=== PATIENT | female | born 1975 | race American Indian/Alaskan Native ===

== ENCOUNTER 2016-09-27 18:10 | Inpatient (IN) | payer MEDICAID ==
[2016-09-27 18:10] VITALS: BMI 32.4
--- NOTE | 2016-09-27 20:22 | C.PDOC ---
History Of Present Illness 41 y/o female transferred from [place] ED for eclampsia. Elevated blood pressure and lower extremity edema noted at 8 day follow up visit with complaints of headache and hypertension, patient sent to [place] ED; patient then transferred to [facility] by Dr Gannon. Denies chest pain, SOB, vomiting or any other complaints. Chief Complaint (Nursing): High Blood Pressure History Per: Patient History/Exam Limitations: no limitations Onset/Duration Of Symptoms: Hrs, Days Current Symptoms Are (Timing): Still Present Associated Symptoms: Headache Severity: Moderate Recent travel outside of the [place]: No Past Medical History Reviewed: Historical Data, Nursing Documentation, Vital Signs Vital Signs: Last Vital Signs Temp 98.2 F 09/27/16 20:45 Pulse 51 L 09/27/16 20:45 Resp 20 09/27/16 20:45 BP 161/68 H 09/27/16 20:45 Pulse Ox 100 09/27/16 23:21 - Medical History PMH: Asthma - [facility] Procedures ARTIF RUPT MEMBRANES NEC (10/14/98) EPISIOTOMY (10/14/98) NEBULIZER THERAPY (01/08/14) REMOV INTRALUM VAG FB (02/25/14) Family History: States: Unknown Family Hx - Social History Hx Tobacco Use: No Hx Alcohol Use: Yes Hx Substance Use: No - Immunization History Hx Tetanus Toxoid Vaccination: No Hx Influenza Vaccination: No Hx Pneumococcal Vaccination: No Review Of Systems Constitutional: Negative for: Fever Cardiovascular: Negative for: Chest Pain Respiratory: Negative for: Shortness of Breath Gastrointestinal: Negative for: Vomiting Musculoskeletal: Positive for: Other (bilateral lower extremity edema) Neurological: Positive for: Headache Physical Exam - Physical Exam Appears: Non-toxic, No Acute Distress, Other (black female) Skin: Warm, Dry, No Rash Head: Atraumatic, Normacephalic Neck: Normal, Normal ROM, Supple Chest: Symmetrical Cardiovascular: Rhythm Regular, No Murmur Respiratory: Normal Breath Sounds, No Rales, No Rhonchi, No Wheezing Gastrointestinal/Abdominal: Soft, No Tenderness, Other (Pfannenstiel incisions to abdomen) Extremity: Normal ROM, No Calf Tenderness, Other (obese lower extremities with mild edema) Pulses: Left Dorsalis Pedis: Normal, Right Dorsalis Pedis: Normal Neurological/Psych: Oriented x3, Normal Speech ED Course And Treatment - Laboratory Results Lab Interpretation: Normal (ua neg for protein, + THC) O2 Sat by Pulse Oximetry: 100 (room air) Pulse Ox Interpretation: Normal Reevaluation Time: 19:50 Reassessment Condition: Improved - Physician Consult Information Outcome Of Conversation: 1924: d/w Dr. Torre- OB [facility] Tender- ok to OB floor, will eval in ED Medical Decision Making Medical Decision Making: ? post- ecclampsia, neg urine protein Disposition Doctor Will See Patient In The: Hospital Counseled Patient/Family Regarding: Studies Performed, Diagnosis - Disposition Disposition: HOSPITALIZED Disposition Time: 19:50 Condition: GOOD - Clinical Impression Clinical Impression: hypertension - Scribe Statement The provider has reviewed the documentation as recorded by the Gia Yusuf Provider Attestation: All medical record entries made by the Gia were at my direction and personally dictated by me. I have reviewed the chart and agree that the record accurately reflects my personal performance of the history, physical exam, medical decision making, and the department course for this patient. I have also personally directed, reviewed, and agree with the discharge instructions and disposition.
[2016-09-27] MEDS ORDERED: Labetalol 25mg/5ml Syringe IVP STA ×2 (20:25→20:27)
[2016-09-27] MEDS ORDERED: Labetalol 25mg/5ml Syringe ONE (20:35)
--- NOTE | 2016-09-27 20:38 | CP.PCM.HP ---
History of Present Illness - History of Present Illness History of Present Illness: 41 yr s/p c/s 09/19/16 in [facility] send by pmd Dr Obregon because bp is high, c/o dizziness and swelling in leg. pt c/o hedache in frontl are and no blurry visiion. no h/o htn or preeclampsia before. pt was send from [facility] andnot seen by obgyn.pt was given mgso4 and labetolol in er. obhx 2 x , 1 x c/s pmh den med motrin, percocet all nkda psh c/s, nasal septum smoking +++ abd incision clean and dry, abdomen soft ext mild eedema,no calf ten reflex 1+ bp 182/81 blood work normal Present on Admission - Present on Admission Any Indicators Present on Admission: No History of DVT/PE: No History of Uncontrolled Diabetes: No Urinary Catheter: No Decubitus Ulcer Present: No Review of Systems - Neurological Neurological: As Per HPI Past Patient History - Infectious Disease Hx of Infectious Diseases: None - Tetanus Immunizations Tetanus Immunization: Unknown - Past Social History Smoking Status: Light Smoker < 10 Cigarettes Daily - CARDIAC Hx Cardiac Disorders: No - PULMONARY Hx Asthma: Yes - NEUROLOGICAL Hx Neurological Disorder: No - HEENT Hx HEENT Problems: No - RENAL Hx Chronic Kidney Disease: No - ENDOCRINE/METABOLIC Hx Endocrine Disorders: No - HEMATOLOGICAL/ONCOLOGICAL Hx Blood Disorders: No - INTEGUMENTARY Hx Dermatological Problems: No - MUSCULOSKELETAL/RHEUMATOLOGICAL Hx Musculoskeletal Disorders: No - GASTROINTESTINAL Hx Gastrointestinal Disorders: No - GENITOURINARY/GYNECOLOGICAL Hx Genitourinary Disorders: No - PSYCHIATRIC Hx Depression: No Hx Substance Use: No - SURGICAL HISTORY Other/Comment: nasal polyps - ANESTHESIA Hx Anesthesia: Yes Hx Anesthesia Reactions: No Hx Malignant Hyperthermia: No Meds Allergies/Adverse Reactions: Allergies Allergy/AdvReac Type Severity Reaction Status Date / Time No Known Allergies Allergy Verified 09/27/16 15:45 Physical Exam - Constitutional Appears: Well - Respiratory Exam Respiratory Exam: NORMAL BREATHING PATTERN - Cardiovascular Exam Cardiovascular Exam: REGULAR RHYTHM - Exam External exam: NORMAL EXTERNAL EXAM - Extremities Exam Extremities exam: Positive for: pedal edema (1=) Results - Vital Signs Recent Vital Signs: Last Vital Signs Temp 98 F 09/27/16 18:27 Pulse 56 L 09/27/16 20:20 Resp 18 09/27/16 18:27 BP 185/82 H 09/27/16 20:20 Pulse Ox 100 09/27/16 20:22 Assessment & Plan - Assessment and Plan (Free Text) Assessment: 41 yr with post preeclampsia Plan: Admit to quality improvement manager Mgso4 2 gm ivpb for 24 hrs. bp monitoring input/out put labs in am s mg level q6 hr cont close observation - Date & Time Date: 09/27/16 Time: 20:45
[2016-09-27] MEDS ORDERED: Magnesium Sulfate 20 gm 20 MG/0.5 ML BAG IV SCH ×2 (20:45→21:00)
[2016-09-27] MEDS ORDERED: Magnesium Sulfate 20 gm 500 ML IV SCH (21:15)
[2016-09-27] MEDS ORDERED: Magnesium Sulfate 20 gm 20,000 MG/500 ML BAG IV ONE ×2 (21:42→22:00)
[2016-09-27 22:26] LABS: RBC URINE < 1 /hpf (0-3); TRANSITIONAL EPITHIAL < 1 /hpf (0-3); URINE BACTERIA RARE (<OCC); URINE BILIRUBIN NEGATIVE (NEGATIVE); URINE BLOOD 1+ (NEGATIVE); URINE COLOR Straw (YELLOW); URINE GLUCOSE (UA) NORMAL (Normal); URINE KETONE NEGATIVE (NEGATIVE); URINE LEUKOCYTE ESTERASE NEG Leu/uL (Negative); URINE PROTEIN NEGATIVE (NEGATIVE); URINE UROBILINOGEN NORMAL mg/dL (0.2-1.0); WBC URINE 1 /hpf (0-5)
[2016-09-28 04:06] LABS: INR 0.9
[2016-09-28] MEDS ORDERED: Magnesium Sulfate 20 gm 20,000 MG/500 ML BAG IV ONE (08:43)
[2016-09-28 11:55] LABS: BASO # 0.1 K/uL (0.0-0.2); BASO % 0.9 % (0.0-2.0); EOS # 0.3 K/uL (0.0-0.7); EOS % 4.1 % (0.0-4.0); HEMATOCRIT 31.7 % (34.0-47.0); LYMPH # 2.3 K/uL (1.0-4.3); LYMPH % 27.2 % (20.0-40.0); MEAN CORPUSCULAR HEMOGLOBIN 31.2 pg (27.0-31.0); MEAN CORPUSCULAR HGB CONC 33.2 g/dL (33.0-37.0); MONO # 0.6 K/uL (0.0-0.8); NRBC % 0.1 % (0.0-2.0); RED CELL DISTRIBUTION WIDTH 13.9 % (11.5-14.5); WHITE BLOOD COUNT 8.3 K/uL (4.8-10.8)
--- NOTE | 2016-09-28 11:55 | CP.PCM.CON ---
<Regina Kapoor - Last Filed: 09/28/16 17:30> History of Present Illness - History of Present Illness History of Present Illness: MEDICAL CONSULT NOTE CC: elevated blood pressure to lower extremity swelling HPI: 41 yo patient with PMHx significant for asthma presents s/p September 19, 2016. Patient states that she delivered at [facility] in [place], [place]. Patient states that the was performed due to failure of progression. It was also noted at the time that the nuchal cord was wrapped around the baby's neck. She states that there were no known complications during the procedure nor post-op. Patient states that she has had two prior vaginal deliveries in the past without complications. She states that she went to her OBGYN's office yesterday for a routine 1-wk checkup and was told that her pressure was elevated which was new for her. She was also noted to have lower extremity bilateral edema as well. Patient was asked to go to the emergency room and thus she went to [facility] where she was evaluated and recommended to be transferred to [facility]. She states that she has had the lower extremity swelling over the course of the . She reported feeling lightheaded on one occasion last week (Tue) after being discharged from the hospital which resolved. Patient also reports headaches which began last night, resolved and then continued this morning. Patient admits to cough and cold symptoms of two weeks duration and increased urinary frequency. She denies subjective fevers or chills, chest pain, palpitations, abdominal pain, nausea, vomiting, visual changes, vaginal discharge, paresthesias, diarrhea, constipation, back pain, leg pain, or changes in appetite. PMHX: Asthma PSHX: September 19, 2016 Meds: Post delivery: iron, ibuprofen 600 mg and percocet 5-325 Q6 PRN, and antibiotic that begins with the letter c Fam Hx: Mom had breast cancer requiring mastectomy, HTN, renal disease. Mom of pulmonary embolism in 2002 at age 59; Dad has DM and had a stroke last year at the age of 74 Social Hx: 4 cigarettes a day for approx 10 years; drinks alcohol only during family gatherings; admits to daily marijuana use; last used a few days ago; Allergies- denies Review of Systems - Constitutional Constitutional: Headache. absent: Fever, Increased Appetite - EENT Eyes: absent: Blurred Vision, Change in Vision, Pain Ears: absent: Decreased Hearing, Ear Discharge Nose/Mouth/Throat: absent: Nasal Congestion - Cardiovascular Cardiovascular: absent: Chest Pain, Chest Pain at Rest - Respiratory Respiratory: Cough - Gastrointestinal Gastrointestinal: absent: Abdominal Pain, Nausea, Vomiting - Genitourinary Genitourinary: Urinary Frequency. absent: Change in Urinary Stream, Dysuria, Flank Pain, Hematuria, Pyuria, Urinary Urgency - Musculoskeletal Musculoskeletal: absent: Back Pain, Muscle Weakness, Neck Pain - Integumentary Integumentary: Swelling (1+ LE b/l). absent: Dry Skin, Skin Pain - Neurological Neurological: Headaches. absent: Abnormal Hearing, Abnormal Movements, Confusion, Convulsions, Dizziness, Frequent Falls, Syncope, Tingling - Psychiatric Psychiatric: absent: Anxiety, Panic Attacks - Endocrine Endocrine: absent: Polydipsia, Polyphagia - Hematologic/Lymphatic Hematologic: absent: Easy Bleeding, Easy Bruising Past Patient History - Infectious Disease Hx of Infectious Diseases: None - Tetanus Immunizations Tetanus Immunization: Unknown - Past Social History Smoking Status: Light Smoker < 10 Cigarettes Daily Alcohol: Occasional Drugs: Cannabis - CARDIAC Hx Cardiac Disorders: No - PULMONARY Hx Asthma: Yes - NEUROLOGICAL Hx Neurological Disorder: No - HEENT Hx HEENT Problems: No - RENAL Hx Chronic Kidney Disease: No - ENDOCRINE/METABOLIC Hx Endocrine Disorders: No - HEMATOLOGICAL/ONCOLOGICAL Hx Blood Disorders: No - INTEGUMENTARY Hx Dermatological Problems: No - MUSCULOSKELETAL/RHEUMATOLOGICAL Hx Musculoskeletal Disorders: No - GASTROINTESTINAL Hx Gastrointestinal Disorders: No - GENITOURINARY/GYNECOLOGICAL Hx Genitourinary Disorders: No - PSYCHIATRIC Hx Substance Use: No - SURGICAL HISTORY Other/Comment: nasal polyps - ANESTHESIA Hx Anesthesia: Yes Hx Anesthesia Reactions: No Hx Malignant Hyperthermia: No Meds Allergies/Adverse Reactions: Allergies Allergy/AdvReac Type Severity Reaction Status Date / Time No Known Allergies Allergy Verified 09/27/16 15:45 - Medications Medications: Current Medications Magnesium Sulfate (Magnesium Sulfate) 20,000 mg in 500 mls @ 25 mls/hr IV ONCE ONE Stop: 09/28/16 17:59 Last Admin: 09/27/16 21:45 Dose: 25 mls/hr Ibuprofen (Motrin Tab) 600 mg PO Q6 PRN Last Admin: 09/27/16 23:20 Dose: 600 mg Physical Exam - Constitutional Appears: No Acute Distress - Head Exam Head Exam: ATRAUMATIC, NORMAL INSPECTION, NORMOCEPHALIC - Eye Exam Eye Exam: EOMI, Normal appearance, PERRL Pupil Exam: NORMAL ACCOMODATION - ENT Exam ENT Exam: Mucous Membranes Moist, Normal Exam - Neck Exam Neck exam: Positive for: Normal Inspection - Respiratory Exam Respiratory Exam: NORMAL BREATHING PATTERN. absent: Chest Wall Tenderness, Decreased Breath Sounds, Wheezes - Cardiovascular Exam Cardiovascular Exam: Bradycardia, +S1, +S2 - GI/Abdominal Exam GI & Abdominal Exam: Distended (appropriately distended post delivery) , Normal Bowel Sounds, Soft. absent: Guarding, Hernia Additional comments: incisional site c/d/i with steri strips present - Extremities Exam Extremities exam: Positive for: full ROM, pedal edema (b/l 1+). Negative for: tenderness - Back Exam Back exam: FULL ROM - Neurological Exam Neurological exam: Alert, Oriented x3 - Expanded Neurological Exam Expanded Patient oriented to: person, place, time Cranial nerves: EOM's Intact: Normal, Facial Sensation: Normal Cerebellar Function: Finger to Nose: Normal, Heel to Brush: Normal Upper motor neuron: Babinski Sign: Normal Sensory exam: Lower Extremity Light Touch: Normal, Lower Extremity Temperature: Normal, Upper Extremity Light Touch: Normal, Upper Extremity Temperature: Normal Neuro motor strength exam: Left Upper Extremity: 5, Right Upper Extremity: 5, Left Lower Extremity: 5, Right Lower Extremity: 5 DTR: Achilles Tendon Left: 2+, Achilles Tendon Right: 2+, Brachioradialis Left: 2+, Brachioradialis Right: 2+, Patellar Left: 2+, Patellar Right: 2+ - Psychiatric Exam Psychiatric exam: Normal Affect, Normal Mood - Skin Skin Exam: Intact, Normal Color, Warm Results - Vital Signs Recent Vital Signs: Last Vital Signs Temp 98.2 F 09/27/16 20:45 Pulse 51 L 09/27/16 20:45 Resp 20 09/27/16 20:45 BP 161/68 H 09/27/16 20:45 Pulse Ox 100 09/28/16 00:27 - Labs Result Diagrams: 09/28/16 11:41 09/28/16 11:41 Labs: Laboratory Results - last 24 hr 09/27/16 09/27/16 09/28/16 22:17 22:17 03:53 PT INR APTT Magnesium 5.3 H* Urine Color Straw Urine Clarity Clear Urine pH 7.0 Ur Specific [place] 1.005 Urine Protein Negative Urine Glucose (UA) Normal Urine Ketones Negative Urine Blood 1+ H Urine Nitrate Negative Urine Bilirubin Negative Urine Urobilinogen Normal Ur Leukocyte Esterase Neg Urine WBC (Auto) 1 Urine RBC (Auto) < 1 Ur Squamous Epith Cells 1 Ur Transition Epith Cell < 1 Urine Bacteria Rare Urine Opiates Screen Negative Urine Methadone Screen Negative Ur Barbiturates Screen Negative Ur Phencyclidine Scrn Negative Ur Amphetamines Screen Negative U Benzodiazepines Scrn Negative U Oth Cocaine Metabols Negative U Cannabinoids Screen Positive 09/28/16 03:53 PT 10.4 INR 0.9 APTT 23 Magnesium Urine Color Urine Clarity Urine pH Ur Specific [place] Urine Protein Urine Glucose (UA) Urine Ketones Urine Blood Urine Nitrate Urine Bilirubin Urine Urobilinogen Ur Leukocyte Esterase Urine WBC (Auto) Urine RBC (Auto) Ur Squamous Epith Cells Ur Transition Epith Cell Urine Bacteria Urine Opiates Screen Urine Methadone Screen Ur Barbiturates Screen Ur Phencyclidine Scrn Ur Amphetamines Screen U Benzodiazepines Scrn U Oth Cocaine Metabols U Cannabinoids Screen Assessment & Plan - Assessment and Plan (Free Text) Assessment: Suspected Pospartum Preeclampsia Patient admitted to OBGYN service On Mag Sulfate for 24 hr- Monitor Mag level. First level 5.3, second check 6.0 Monitor ins and outs LFTs WNL, platelets WNL EKG Initial NSR with 1st AV block with HR in 50s - [facility] on 09/27 2nd EKG NSR 1st AV block with HR in 50s Will recheck EKG and vitals after Mag sulfate is stopped. Patient initially given Hydralazine. BP initially 174/81-> now 147/69 at 13:16 on 09/28 Monitor BP and HR Ibuprofen for ADAMS Oxygen therapy if necessary F/U with OBGYN team Cont to monitor vitals Prophylactic Measure Ambulation as tolerated Continued Monitoring of vitals <Analisa Quick V - Last Filed: 09/29/16 09:24> Meds - Medications Medications: Current Medications Ibuprofen (Motrin Tab) 600 mg PO Q6 PRN Last Admin: 09/28/16 22:14 Dose: 600 mg Nifedipine (Procardia) 10 mg PO BID ZIGGY Last Admin: 09/28/16 20:52 Dose: 10 mg Results - Vital Signs Recent Vital Signs: Last Vital Signs Temp 99.2 F 09/29/16 08:00 Pulse 65 09/29/16 08:00 Resp 18 09/29/16 08:00 BP 140/88 09/29/16 08:00 Pulse Ox 100 09/29/16 08:00 - Labs Result Diagrams: 09/29/16 07:12 09/29/16 07:12 Labs: Laboratory Results - last 24 hr 09/28/16 09/28/16 09/29/16 11:41 11:41 07:12 WBC 8.3 8.3 RBC 3.37 L 3.72 L Hgb 10.5 L 11.4 Hct 31.7 L 34.9 MCV 94.0 94.0 MCH 31.2 H 30.6 MCHC 33.2 32.5 L RDW 13.9 13.9 Plt Count 313 344 MPV 8.0 8.1 Neut % (Auto) 60.8 62.7 Lymph % (Auto) 27.2 25.7 [place] % (Auto) 7.0 6.8 Eos % (Auto) 4.1 H 4.0 Baso % (Auto) 0.9 0.8 Neut # 5.0 5.2 Lymph # 2.3 2.1 [place] # 0.6 0.6 Eos # 0.3 0.3 Baso # 0.1 0.1 Sodium 136 Potassium 3.9 Chloride 101 Carbon Dioxide 30 Anion Gap 9 L BUN 5 L Creatinine 0.8 Est GFR ( Amer) > 60 Est GFR (Non-Af Amer) > 60 Random Glucose 85 Uric Acid 6.7 Calcium 6.8 L Phosphorus Magnesium 6.0 H* Total Bilirubin 0.8 AST 25 ALT 20 Alkaline Phosphatase 83 Lactate Dehydrogenase 610 Total Protein 6.5 Albumin 3.2 L Globulin 3.3 Albumin/Globulin Ratio 1.0 09/29/16 07:12 WBC RBC Hgb Hct MCV MCH MCHC RDW Plt Count MPV Neut % (Auto) Lymph % (Auto) [place] % (Auto) Eos % (Auto) Baso % (Auto) Neut # Lymph # [place] # Eos # Baso # Sodium 136 Potassium 4.1 Chloride 101 Carbon Dioxide 28 Anion Gap 10 BUN 6 L Creatinine 0.9 Est GFR ( Amer) > 60 Est GFR (Non-Af Amer) > 60 Random Glucose 77 Uric Acid Calcium 6.3 L Phosphorus 3.9 Magnesium 4.1 H Total Bilirubin 0.7 AST 21 ALT 20 Alkaline Phosphatase 89 Lactate Dehydrogenase Total Protein 6.6 Albumin 3.2 L Globulin 3.4 Albumin/Globulin Ratio 0.9 L Attending/Attestation - Attestation I have personally seen and examined this patient.: Yes I have fully participated in the care of the patient.: Yes I have reviewed all pertinent clinical information: Yes Notes (Text): This is late computer entry for 09/28/16. Patient seen, examined, and case discussed with day-time resident. Medicine service consulted for bradycardia. Management post- pre- elclamsia per OBGYN. Patient seen, examined at bedside. Patient denies lightheadedness, denies dizziness, denies nausea, denies vomitting. Patient denies prior cardiac history and reports her blood pressure is normally normal. Patient is currently being treated for pre-eclampsia after worsening b/l leg swelling post and associated rise in systolic blood pressure at her OB-HEALTH TYPE TECHNICIAN office at her follow-up appointment. Patient is currently on IV magnesium for her pre- elcampsia. Reviewed prior EKG from [place] on her admission which report sinus bradycardia w 1 AV block HR: 59; NM mildly above 200ms. Ordered for repeat EKG today. Discussed with OB-HEALTH TYPE TECHNICIAN, Dr Pollack, suspecting bradycardia secondary to IV Magnesium which is showed at levels of Mg2+4-5. Will assess patient when IV Magnesium is stopped per OB-HEALTH TYPE TECHNICIAN. Assessment/Plan 1) Bradycardia * suspected secondary to IV Magnesium (Level: 4-5) * asymptomatic of bradycardia * Will order repeat EKG * Continue to monitor 3) Post- pre-eclampsia * Management per OBGYN Thank for you the consult.
[2016-09-28 12:25] LABS: CHLORIDE 101 mmol/L (98-107); POTASSIUM 3.9 mmol/L (3.6-5.2); SODIUM 136 mmol/L (132-148)
[2016-09-28 12:27] LABS: ALKALINE PHOSPHATASE 83 U/L (38-126); AST/SGOT 25 U/L (14-36); BILIRUBIN,TOTAL 0.8 mg/dL (0.2-1.3); CARBON DIOXIDE 30 mmol/L (22-30); GFR AFRICAN-AMERICAN > 60; TOTAL PROTEIN 6.5 g/dL (6.3-8.3)
[2016-09-28 12:28] LABS: ALT/SGPT 20 U/L (9-52); BLOOD UREA NITROGEN 5 mg/dL (7-17); CALCIUM 6.8 mg/dl (8.6-10.4); GLUCOSE,RANDOM 85 mg/dL (65-105); URIC ACID 6.7 mg/dL (2.2-7.5)
[2016-09-29 07:28] LABS: BASO # 0.1 K/uL (0.0-0.2); BASO % 0.8 % (0.0-2.0); EOS # 0.3 K/uL (0.0-0.7); HEMATOCRIT 34.9 % (34.0-47.0); LYMPH # 2.1 K/uL (1.0-4.3); LYMPH % 25.7 % (20.0-40.0); MEAN CORPUSCULAR HEMOGLOBIN 30.6 pg (27.0-31.0); MEAN CORPUSCULAR HGB CONC 32.5 g/dL (33.0-37.0); MEAN PLATELET VOLUME 8.1 fL (7.2-11.7); MONO # 0.6 K/uL (0.0-0.8); MONO % 6.8 % (0.0-10.0); RED CELL DISTRIBUTION WIDTH 13.9 % (11.5-14.5); WHITE BLOOD COUNT 8.3 K/uL (4.8-10.8)
[2016-09-29 07:44] LABS: CHLORIDE 101 mmol/L (98-107); POTASSIUM 4.1 mmol/L (3.6-5.2); SODIUM 136 mmol/L (132-148)
[2016-09-29 07:46] LABS: BILIRUBIN,TOTAL 0.7 mg/dL (0.2-1.3); CARBON DIOXIDE 28 mmol/L (22-30); GFR AFRICAN-AMERICAN > 60
[2016-09-29 07:47] LABS: ALB/GLOB RATIO 0.9 (1.0-2.1); ALKALINE PHOSPHATASE 89 U/L (38-126); ALT/SGPT 20 U/L (9-52); AST/SGOT 21 U/L (14-36); BLOOD UREA NITROGEN 6 mg/dL (7-17); CALCIUM 6.3 mg/dl (8.6-10.4); GLUCOSE,RANDOM 77 mg/dL (65-105); MAGNESIUM 4.1 mg/dL (1.6-2.3); PHOSPHOROUS 3.9 mg/dL (2.5-4.5); TOTAL PROTEIN 6.6 g/dL (6.3-8.3)
--- NOTE | 2016-09-29 08:02 | CP.PCM.PN ---
Subjective - Date & Time of Evaluation Date of Evaluation: 09/29/16 Time of Evaluation: 08:00 - Subjective Subjective: pt was seen at bed side. feels ok, no hedache no blurry visuon. pain under control, no n/v. bp 140,s to 80 Objective - Vital Signs/Intake and Output Vital Signs (last 24 hours): Temp Pulse Resp BP Pulse Ox 98.4 F 64 20 146/88 98 09/29/16 00:09 09/29/16 00:09 09/29/16 00:09 09/29/16 00:09 09/28/16 22:00 - Medications Medications: Current Medications Ibuprofen (Motrin Tab) 600 mg PO Q6 PRN Last Admin: 09/28/16 22:14 Dose: 600 mg Nifedipine (Procardia) 10 mg PO BID ZIGGY Last Admin: 09/28/16 20:52 Dose: 10 mg - Labs Labs: 09/29/16 07:12 09/29/16 07:12 PT 10.4 SECONDS (9.7-12.2) 09/28/16 03:53 INR 0.9 09/28/16 03:53 APTT 23 SECONDS (21-34) 09/28/16 03:53 Assessment and Plan - Assessment and Plan (Free Text) Assessment: 41 yr with pp preeclampsia/roni cardia/AV block Plan: plan cont procardia cont medicine consul for badycardia repeat ekg cont breanna minitoring possible dc in am
--- NOTE | 2016-09-29 12:01 | OBPPN ---
Datetime: 09/28/2016 11:20 PP Pain Prov: Within normal limits PP Nausea Prov: Denies PP Flatus Prov: Yes PP Lungs Prov: Normal PP Abdomen/Uterus Prov: Normal PP Lochia Prov: Normal PP CVA Tenderness Prov: Normal PP Extremities Prov: Normal PP Progress Note Prov: Patient admitted for elevated BP, pp pre-eclampsia.s/p delivery 09/19/2016 s/p labetalol in er yesterdaya nd then hydralazine on admission S-patient repprts feeling flsuhed with mild headache at times.feels hingry.denies any more chect d iscomfort.denies vision changes, chest pain,shortness of breath, numbness or tingling in hands and fe et O-BP 130-160s/80-90s; heart rate 40-50s Lungs ctab heart s1s2+ abdomen soft and nontender extremities no calf tenderness A/P Patient admitted with PP pre-eclampsia.On magnesium sulfate.Bradycardia noted.no predelivery h eart rate log available -medicine consult -continue magnesium till 9 pm tonight -check pih labs now -monitor closely -if bp continue to be high consider antihypertensives Vital Signs Provider PP: Reviewed
--- NOTE | 2016-09-29 12:49 | CP.PCM.PN ---
Subjective - Date & Time of Evaluation Date of Evaluation: 09/29/16 Time of Evaluation: 07:40 - Subjective Subjective: PGY1 Progress note for Dr. Quick Patient seen and examined. Patient states she feels much better. Patient states headache she had previously has since resolved. Patient also states that lower extremity swelling has reduced significantly. Objective - Vital Signs/Intake and Output Vital Signs (last 24 hours): Temp Pulse Resp BP Pulse Ox 99.2 F 65 18 140/88 100 09/29/16 08:00 09/29/16 08:00 09/29/16 08:00 09/29/16 08:00 09/29/16 08:00 - Medications Medications: Current Medications Ibuprofen (Motrin Tab) 600 mg PO Q6 PRN Last Admin: 09/28/16 22:14 Dose: 600 mg Nifedipine (Procardia) 10 mg PO BID ZIGGY Last Admin: 09/29/16 10:09 Dose: 10 mg - Labs Labs: 09/29/16 07:12 09/29/16 07:12 PT 10.4 SECONDS (9.7-12.2) 09/28/16 03:53 INR 0.9 09/28/16 03:53 APTT 23 SECONDS (21-34) 09/28/16 03:53 - Constitutional Appears: Non-toxic, No Acute Distress - Head Exam Head Exam: ATRAUMATIC, NORMOCEPHALIC - Eye Exam Eye Exam: EOMI - ENT Exam ENT Exam: Mucous Membranes Moist - Respiratory Exam Respiratory Exam: Clear to Ausculation Bilateral, NORMAL BREATHING PATTERN - Cardiovascular Exam Cardiovascular Exam: +S1, +S2 - GI/Abdominal Exam GI & Abdominal Exam: Soft, Tenderness (mild around incision), Normal Bowel Sounds - Extremities Exam Extremities Exam: Pedal Edema (1+ bilaterally) - Neurological Exam Neurological Exam: Alert, Awake - Psychiatric Exam Psychiatric exam: Normal Affect - Skin Skin Exam: Dry, Warm Assessment and Plan - Assessment and Plan (Free Text) Assessment: Asymptomatic Bradycardia suspected secondary to IV Magnesium (Level: 4-5) will re-check EKG today HR in 60s and 70s today Suspected Pospartum Preeclampsia Patient admitted to OBGYN service Off of Mag Sulfate, now on nifedipine Further management per OBGYN team Prophylactic Measure Ambulation as tolerated Continued Monitoring of vitals
[2016-09-30 08:43] VITALS: PULSE 47; RESP 18; TEMP 97.6; O2SAT 98
--- NOTE | 2016-09-30 08:44 | CP.PCM.DIS ---
Provider - Provider Date of Admission: 09/27/16 19:22 Attending physician: Joseph Torre MD Consults: Internal Medicine Time Spent in preparation of Discharge (in minutes): 20 Diagnosis - Discharge Diagnosis (1) hypertension Status: Acute Hospital Course - Lab Results Lab Results: Most Recent Lab Values WBC 8.3 K/uL (4.8-10.8) 09/29/16 07:12 RBC 3.72 Mil/uL (3.80-5.20) L 09/29/16 07:12 Hgb 11.4 g/dL (11.0-16.0) 09/29/16 07:12 Hct 34.9 % (34.0-47.0) 09/29/16 07:12 MCV 94.0 fL (81.0-99.0) 09/29/16 07:12 MCH 30.6 pg (27.0-31.0) 09/29/16 07:12 MCHC 32.5 g/dL (33.0-37.0) L 09/29/16 07:12 RDW 13.9 % (11.5-14.5) 09/29/16 07:12 Plt Count 344 K/uL (130-400) 09/29/16 07:12 MPV 8.1 fL (7.2-11.7) 09/29/16 07:12 Neut % (Auto) 62.7 % (50.0-75.0) 09/29/16 07:12 Lymph % (Auto) 25.7 % (20.0-40.0) 09/29/16 07:12 [place] % (Auto) 6.8 % (0.0-10.0) 09/29/16 07:12 Eos % (Auto) 4.0 % (0.0-4.0) 09/29/16 07:12 Baso % (Auto) 0.8 % (0.0-2.0) 09/29/16 07:12 Neut # 5.2 K/uL (1.8-7.0) 09/29/16 07:12 Lymph # 2.1 K/uL (1.0-4.3) 09/29/16 07:12 [place] # 0.6 K/uL (0.0-0.8) 09/29/16 07:12 Eos # 0.3 K/uL (0.0-0.7) 09/29/16 07:12 Baso # 0.1 K/uL (0.0-0.2) 09/29/16 07:12 PT 10.4 SECONDS (9.7-12.2) 09/28/16 03:53 INR 0.9 09/28/16 03:53 APTT 23 SECONDS (21-34) 09/28/16 03:53 Sodium 136 mmol/L (132-148) 09/29/16 07:12 Potassium 4.1 mmol/L (3.6-5.2) 09/29/16 07:12 Chloride 101 mmol/L (98-107) 09/29/16 07:12 Carbon Dioxide 28 mmol/L (22-30) 09/29/16 07:12 Anion Gap 10 (10-20) 09/29/16 07:12 BUN 6 mg/dL (7-17) L 09/29/16 07:12 Creatinine 0.9 MG/DL (0.7-1.2) 09/29/16 07:12 Est GFR ( Amer) > 60 09/29/16 07:12 Est GFR (Non-Af Amer) > 60 09/29/16 07:12 Random Glucose 77 mg/dL (65-105) 09/29/16 07:12 Uric Acid 6.7 mg/dL (2.2-7.5) 09/28/16 11:41 Calcium 6.3 mg/dl (8.6-10.4) L 09/29/16 07:12 Phosphorus 3.9 mg/dL (2.5-4.5) 09/29/16 07:12 Magnesium 4.1 mg/dL (1.6-2.3) H 09/29/16 07:12 Total Bilirubin 0.7 mg/dL (0.2-1.3) 09/29/16 07:12 AST 21 U/L (14-36) 09/29/16 07:12 ALT 20 U/L (9-52) 09/29/16 07:12 Alkaline Phosphatase 89 U/L (38-126) 09/29/16 07:12 Lactate Dehydrogenase 610 U/L (313-618) 09/28/16 11:41 Total Protein 6.6 g/dL (6.3-8.3) 09/29/16 07:12 Albumin 3.2 g/dL (3.5-5.0) L 09/29/16 07:12 Globulin 3.4 gm/dL (2.2-3.9) 09/29/16 07:12 Albumin/Globulin Ratio 0.9 (1.0-2.1) L 09/29/16 07:12 Urine Color Straw (YELLOW) 09/27/16 22:17 Urine Clarity Clear (Clear) 09/27/16 22:17 Urine pH 7.0 (5.0-8.0) 09/27/16 22:17 Ur Specific [place] 1.005 (1.003-1.030) 09/27/16 22:17 Urine Protein Negative mg/dL (NEGATIVE) 09/27/16 22:17 Urine Glucose (UA) Normal mg/dL (Normal) 09/27/16 22:17 Urine Ketones Negative mg/dL (NEGATIVE) 09/27/16 22:17 Urine Blood 1+ (NEGATIVE) H 09/27/16 22:17 Urine Nitrate Negative (NEGATIVE) 09/27/16 22:17 Urine Bilirubin Negative (NEGATIVE) 09/27/16 22:17 Urine Urobilinogen Normal mg/dL (0.2-1.0) 09/27/16 22:17 Ur Leukocyte Esterase Neg [place]/uL (Negative) 09/27/16 22:17 Urine WBC (Auto) 1 /hpf (0-5) 09/27/16 22:17 Urine RBC (Auto) < 1 /hpf (0-3) 09/27/16 22:17 Ur Squamous Epith Cells 1 /hpf (0-5) 09/27/16 22:17 Ur Transition Epith Cell < 1 /hpf (0-3) 09/27/16 22:17 Urine Bacteria Rare (<OCC) 09/27/16 22:17 Urine Opiates Screen Negative (NEGATIVE) 09/27/16 22:17 Urine Methadone Screen Negative (NEGATIVE) 09/27/16 22:17 Ur Barbiturates Screen Negative (NEGATIVE) 09/27/16 22:17 Ur Phencyclidine Scrn Negative (NEGATIVE) 09/27/16 22:17 Ur Amphetamines Screen Negative (NEGATIVE) 09/27/16 22:17 U Benzodiazepines Scrn Negative (NEGATIVE) 09/27/16 22:17 U Oth Cocaine Metabols Negative (NEGATIVE) 09/27/16 22:17 U Cannabinoids Screen Positive (NEGATIVE) 09/27/16 22:17 - Hospital Course Hospital Course: 41 y/o female s/p vaginal delivery 09/19/2016 admitted for elevated bp/pre- eclampsia .Patient given hydralazine to control the BP Patient received magnesium sulfate for 24 hours and then thereafter was started on nifedipine.BP was stable on nifedipine 10mg twice daily. During the hospital course initially bradycardia was noted which improved after stopping magnesium sulfate drip.Internal medicine was consulted for the bradycardia.Patient had an ekg and was thereafter cleared by medicine team for discharge. Patient had positive drug screen for marijuana for which social service was consulted.Patient was discharge on hospital day 4.She was advised to follow up with in1 week and to follow up with cardiology outpatient Discharge Exam - Head Exam Head Exam: ATRAUMATIC, NORMOCEPHALIC - Respiratory Exam Respiratory Exam: Clear to PA & Lateral, NORMAL BREATHING PATTERN - Cardiovascular Exam Cardiovascular Exam: REGULAR RHYTHM - GI/Abdominal Exam GI & Abdominal Exam: Soft. absent: Rebound, Tenderness - Neurological Exam Neurological exam: Alert, Oriented x3 - Skin Skin Exam: Normal Color Discharge Plan - Discharge Medications Prescriptions: NIFEdipine [Procardia] 10 mg PO BID #60 sgl - Follow Up Plan Condition: GOOD Disposition: HOME/ ROUTINE Instructions: Hypertension (DC), Hypertension (GEN)
--- NOTE | 2016-09-30 09:25 | CP.PCM.PN ---
Subjective - Date & Time of Evaluation Date of Evaluation: 09/30/16 Time of Evaluation: 09:24 - Subjective Subjective: PGY1 Progress note for Dr. Quick Patient seen and examined. Patient states she feels well and her lower extremity swelling has nearly resolved. Patient's repeat EKG sinus bradycardia , no 1st degree AV block seen as on prior EKGs performed while patient on IV Mg. Patient medically stable for discharge from medicine team standpoint. Objective - Vital Signs/Intake and Output Vital Signs (last 24 hours): Temp Pulse Resp BP Pulse Ox 97.6 F 47 L 18 154/89 H 98 09/30/16 08:41 09/30/16 08:41 09/30/16 08:41 09/30/16 08:41 09/30/16 08:41 - Medications Medications: Current Medications Ibuprofen (Motrin Tab) 600 mg PO Q6 PRN Last Admin: 09/28/16 22:14 Dose: 600 mg Nifedipine (Procardia) 10 mg PO BID ZIGGY Last Admin: 09/29/16 18:28 Dose: 10 mg - Labs Labs: 09/29/16 07:12 09/29/16 07:12 PT 10.4 SECONDS (9.7-12.2) 09/28/16 03:53 INR 0.9 09/28/16 03:53 APTT 23 SECONDS (21-34) 09/28/16 03:53 - Constitutional Appears: Non-toxic, No Acute Distress - Head Exam Head Exam: ATRAUMATIC, NORMOCEPHALIC - Eye Exam Eye Exam: EOMI - ENT Exam ENT Exam: Mucous Membranes Moist - Respiratory Exam Respiratory Exam: Clear to Ausculation Bilateral, NORMAL BREATHING PATTERN - Cardiovascular Exam Cardiovascular Exam: +S1, +S2 - GI/Abdominal Exam GI & Abdominal Exam: Soft, Tenderness (around incision), Normal Bowel Sounds - Extremities Exam Extremities Exam: Pedal Edema (mild bilateral pitting edema) - Neurological Exam Neurological Exam: Alert, Awake - Psychiatric Exam Psychiatric exam: Normal Affect - Skin Skin Exam: Dry, Warm Assessment and Plan - Assessment and Plan (Free Text) Assessment: Asymptomatic Bradycardia suspected secondary to IV Magnesium (Level: 4-5) repeat EKG with HR 59, sinus bradycardia Patient to establish care with Dr. Ibarra Suspected Pospartum Preeclampsia Patient to be discharged today per OBGYN team with follow up with Dr. [place] Patient to be discharged on nifedipine
[2016-09-30 17:29] VITALS: BP 145/82
--- NOTE | 2016-10-01 12:07 | CARD ---
APPROVED REPORT EKG Measurement Heart [id number] <Conclusion> Sinus bradycardia Left atrial enlargement Borderline ECG
== END 2016-09-30 13:10 | disposition home or self-care (01) | DRG 376 ==
LOC: C.ER 18:10 → C.9E 19:22 → C.4D 20:59 → C.4M 09-28 22:00
PROVIDERS: ADMIT Obstetrics & Gynecology; ATTEND Obstetrics & Gynecology
DX: O15.2 Eclampsia complicating the puerperium (principal); O90.89 Other complications of the puerperium, not elsewhere classified; F17.210 Nicotine dependence, cigarettes, uncomplicated; F12.90 Cannabis use, unspecified, uncomplicated; J45.909 Unspecified asthma, uncomplicated; J33.9 Nasal polyp, unspecified